=== PATIENT | female | born 1985 | race Caucasian/White ===

== ENCOUNTER → 2017-10-30 | Outpatient (CLI) | payer BC ==
[~2017-10-30] MED LIST: PRENTAB26 PO
== END | disposition home or self-care (01) ==
LOC: C.PAPS 08:08
PROVIDERS: ATTEND Physician Assistant
DX: Z01.419 Encounter for gynecological examination (general) (routine) without abnormal findings (principal)

== ENCOUNTER → 2017-10-30 | Outpatient (CLI) | payer BC ==
[2017-10-30 15:42] LABS: HEMATOCRIT 40.3 % (37-47); HEMOGLOBIN 13.9 g/dL (12.0-16.0); MEAN CELL VOLUME 91.8 fL (80-100); MEAN CORPUSCULAR HEMOGLOBIN 31.7 pg (25-34); MEAN CORPUSCULAR HGB CONC 34.5 g/dl (32-36); MEAN PLATELET VOLUME 10.1 fL (7.4-10.4); PLATELET COUNT 278 K/uL (130-400); RED CELL DISTRIBUTION WIDTH SD 43.5 fL (36.4-46.3); WHITE BLOOD COUNT 5.36 K/uL (4.8-10.8)
== END | disposition home or self-care (01) ==
LOC: C.LAB1850 14:14
PROVIDERS: ATTEND Physician Assistant
DX: N93.9 Abnormal uterine and vaginal bleeding, unspecified (principal)

== ENCOUNTER 2022-10-01 17:47 | Inpatient (IN) ==
--- NOTE | 2022-10-01 18:42 | Emergency Department Note ---
Impression & Plan Acute psychosis ED Provider Note HISTORY OF PRESENT ILLNESS: Patient is a 37-year-old female presenting as a 302. Patient's filed a 302 given concern for the patient's ability to care for herself and the statements she has been making over the last month. She reportedly had been fired from her job a month ago and has been having significant decline in her physical and mental state. She is reportedly lost around 30 pounds and is no longer eating or sleeping. She reportedly is on day 4 of being awake. 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 Patient adamantly denies all of the claims in the 302. 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 302 reports patient stopped taking her medications ROS: as above PHYSICAL EXAM: Patient is sitting comfortably on examination bed. She is spe aking in full sentences but does have some tangential thinking. Patient appears well groomed. Makes fair eye contact. Speech is pressured with normal volume and rate. Thought process is tangential. MDM: - Vitals signs showed hypertension. - History obtained via patient and family members, given patient's psychosis. Patient presents with inability to care for herself and acute psychosis. Patient is a 302 petition by her who documents significant concern for the patient's ability to care for herself and others at this time. She has had multiple outpatient stressors including getting fired from her job, over the last month. She has not been taking her psychiatric medications. Patient also reportedly had written a suicide note but denies any suicidal ideation on interview. - Chronic conditions affecting care: bipolar I disorder - Differential diagnoses include, but are not limited to: Acute psychosis; electrolyte abnormality; pneumonia; UTI - External medical records reviewed. 302 petition by was reviewed. He documents multiple examples of the patient's inability to care for herself over the last month. She seems to be having delusions of grandeur and tangential thinking. - Patient's parents present to the ER to help give some supplemental information. They also provide information that is concerning that the patient is unable to care for herself right now secondary to her acute psychiatric issue. Patient is adamant that she has no prior psychiatric diagnoses and is not prescribed any medications, despite documentation as such. Patient's flight of ideas and delusions of grandeur, as well as the information prescribed by family who knows her best, I decided to uphold the 302 petition. Laboratory work-up was obtained for medical clearance. Behavioral health web content & social media manager consulted and assisting with necessary documentation for inpatient psychiatric admission. - Laboratory workup interpreted by myself showed normal WBC; stable electrolytes; negative ethanol/salicylate levels - UA negative for infection. UDS positive for THC. - Patient medically cleared as of 21:00. Awaiting bed search for inpatient psychiatric facility at this time. - Patient admitted to [address] [place] [address] psychiatric service for further mohan luation and management. ASSESSMENT AND PLAN: Diagnosis: acute psychosis Plan: admit Past Med/Surg History Medical History Bipolar I disorder, single manic episode Cardiac murmur Constipation Depression with anxiety Fatigue History of abnormal uterine bleeding History of COVID-19 DX'D 07/30/21 [facility] FATIGUE, SOB, FEVER, NASAL CONGESTION-RECOVERED AT HOME- SYMPTOMS RESOLVED History of genital warts History of varicella Hypothyroidism NO MEDS Labile blood pressure (11/14/13) Normal delivery Pain, lower leg Seizure ??HX DYSTONIC MOVEMENTS OR TYPE OF SEIZURE-BODY MOVEMENTS BUT REMAINS LUCID- LAST EPISODE 06/2021-F/U [facility]-NO MEDS Syncope HX Surgical History No history of previous surgery LOW BP WITH EPIDURAL WITH DAUGHTER 7 YRS AGO Family History Grandfather (Maternal) Diabetes Heart disease Hypertension Skin cancer Brother Thyroid disease Denies family history of Ovarian cancer Breast cancer Colorectal cancer Social History Smoking Status: Former smoker Tobacco Type: Cigarettes and E-cigarettes / Vaping packs per day: 0.5; Cigarettes Per Day: 10 CIGS A DAY; Second Hand Exposure: No; Hx Alcohol Use: Yes Alcohol type: beer Hx Substance Use: No Preferred Language: Samoan Communication Ability: Effective Visual Impairment: No Limitations Hearing Ability: Normal Hot Car Operator Required: No Beliefs That Will Affect Care: None marital status: Current Living Situation: Spouse and Family current occupational status: employed 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 Feels Safe at Home: No Is there a partner from a previous relationship who is making you feel unsafe now?: No Childhood Exposure to Second-Hand Smoke: Yes Dental Care, Regularly: No Physical Activity Frequency: Does not Exercise Seatbelt Use: always Sunscreen Use: Yes Gender Identity: Other Assistive Devices: Glasses Allergies Allergies Allergy/AdvReac Type Severity Reaction Status Date / Time dimenhydrinate Allergy Intermediate Hives Verified 08/24/21 13:30 [From Dramamine] Home Meds Home Medications Medication Instructions Recorded Confirmed Tudca 1 cap PO QPM 09/23/20 08/24/21 activated charcoal 200 mg capsule 0 mg PO BID PRN Other 09/23/20 08/24/21 cholecalciferol (vitamin D3) 10 10 mcg PO QPM 09/23/20 08/24/21 mcg (400 unit) tablet glutamine 500 mg tablet 500 mg PO QAM 09/23/20 08/24/21 magnesium citrate 100 mg capsule 100 mg PO HS 09/23/20 08/24/21 zinc 50 mg tablet 50 mg PO HS 09/23/20 08/24/21 progesterone micronized 100 mg 100 mg PO UD 08/24/21 08/24/21 capsule hydroxyzine pamoate 25 mg capsule 25 mg PO TID PRN Itching 09/12/22 09/12/22 Previous Rx's Medication Instructions Recorded sennosides 8.6 mg-docusate sodium 1 tab-cap PO DAILY constipation 08/31/21 50 mg tablet (Colace 2-In-1) #30 tabs Results & Data (ED) Vital Signs Vital Signs - 24 hr 10/01/22 18:02 10/01/22 18:58 10/01/22 22:00 Temperature 36.9 C Temperature Source Oral Pulse Rate 71 Pulse Rate [Radial] 77 82 Pulse Rhythm [Radial] Regular Regular Pulse Strength [Radial] Normal Normal Respiratory Rate 18 18 18 Respiratory Effort / Characteristics Non-Labored Spontaneous Non-Labored Spontaneous Non-Labored Spontaneous Respiratory Depth Normal Normal Normal Respiratory Pattern Regular Regular Blood Pressure 151/91 H Blood Pressure [Right Arm] 142/82 H Blood Pressure Mean 111 Blood Pressure Mean [Right Arm] 102 Blood Pressure Position Sitting Pulse Oximetry 100 99 97 Oxygen Delivery Method Room Air Room Air Room Air Sepsis Recent Fever Within 48 Hours No Sepsis New/Unexplained Change in Mental Status N/A Sepsis Action Taken by Nursing No Action Required Laboratory Data 10/01/22 19:15 10/01/22 19:15 Lab Results 10/01/22 10/01/22 10/01/22 Range/Units 17:58 17:58 19:15 WBC 7.18 (4.8-10.8) K/ul RBC 4.59 (4.20-5.40) M/uL Hgb 14.6 (12.0-16.0) g/dl Hct 40.1 (37.0-47.0) % MCV 87.4 (80.0-100.0) fL MCH 31.8 (25.0-34.0) pg MCHC 36.4 H (32.0-36.0) g/dL RDW Std Deviation 38.8 (36.4-46.3) fL RDW Coeff of Swati 12.1 (11.5-14.5) % Plt Count 295 (130-400) K/uL MPV 9.5 (9.4-12.4) fL Immature Gran % (Auto) 0.3 % Neut % (Auto) 63.2 % Lymph % (Auto) 28.0 % [place] % (Auto) 7.4 % Eos % (Auto) 0.7 % Baso % (Auto) 0.4 % Neut # (Auto) 4.54 (1.40-6.50) K/uL Lymph # (Auto) 2.01 (1.2-3.4) K/uL [place] # (Auto) 0.53 (0.11-0.59) K/uL Eos # (Auto) 0.05 (0-0.50) K/uL Baso # (Auto) 0.03 (0-0.2) K/uL Immature Gran # (Auto) 0.02 (0.01-0.20) K/uL Sodium (136-145) mmol/L Potassium (3.5-5.1) mmol/L Chloride (98-107) mmol/L Carbon Dioxide (21-32) mmol/L Anion Gap (3-11) BUN (6-23) mg/dl Creatinine (0.6-1.2) mg/dl Est Cr Clr Drug Dosing Est GFR ( Amer) ml/min Est GFR (Non-Af Amer) ml/min BUN/Creatinine Ratio (10-20) Glucose (70-99(Fasting)) mg/dl Calcium (8.5-10.1) mg/dl Total Bilirubin (0.2-1.0) mg/dl AST (13-39) U/L ALT (7-52) U/L Alkaline Phosphatase (34-104) U/L Total Protein (6.0-8.3) gm/dl Albumin (3.4-5.0) gm/dl Globulin (2.5-4.0) gm/dl Albumin/Globulin Ratio (0.9-2) TSH (0.300-4.500) uIu/ml HCG, Qual (Negative) Urine Color Yellow Urine Appearance Cloudy A (Clear) Urine pH 7.0 (4.5-7.5) Ur Specific Ruffin 1.013 (1.000-1.030) Urine Protein Negative (Negative) Urine Glucose (UA) Negative (Negative) Urine Ketones Trace H (Negative) Urine Blood Negative (Negative) Urine Nitrite Negative (Negative) Urine Bilirubin Negative (Negative) Urine Urobilinogen Negative (Negative) Ur Leukocyte Esterase Negative (Negative) Urine WBC (Auto) 1-5 (0-5) /hpf Urine RBC (Auto) 0-4 (0-4) /hpf U Hyaline Cast (Auto) 1-5 (0-5) /lpf U Epithel Cells (Auto) >30 H (0-5) /lpf Urine Bacteria (Auto) Negative (Negative) Salicylates (3.0-30) mg/dl Urine Opiates Screen Neg (Neg) Ur Methadone, Qual Neg (Neg) Acetaminophen (10-30) ug/ml Urine Barbiturates Neg (Neg) Ur Phencyclidine (PCP) Neg (Neg) U Amphetamin/Meth Scrn Neg (Neg) MDMA (Ecstasy) Screen Neg (Neg) U Benzodiazepines Scrn Neg (Neg) Ur Cocaine Metabolite Neg (Neg) U Marijuana (THC) Screen Pos H (Neg) Ethyl Alcohol mg/dL (<10.0) mg/dl SARS-CoV-2, RNA, NAAT (NEGATIVE) 10/01/22 10/01/22 10/01/22 Range/Units 19:15 19:15 19:15 WBC (4.8-10.8) K/ul RBC (4.20-5.40) M/uL Hgb (12.0-16.0) g/dl Hct (37.0-47.0) % MCV (80.0-100.0) fL MCH (25.0-34.0) pg MCHC (32.0-36.0) g/dL RDW Std Deviation (36.4-46.3) fL RDW Coeff of Swati (11.5-14.5) % Plt Count (130-400) K/uL MPV (9.4-12.4) fL Immature Gran % (Auto) % Neut % (Auto) % Lymph % (Auto) % [place] % (Auto) % Eos % (Auto) % Baso % (Auto) % Neut # (Auto) (1.40-6.50) K/uL Lymph # (Auto) (1.2-3.4) K/uL [place] # (Auto) (0.11-0.59) K/uL Eos # (Auto) (0-0.50) K/uL Baso # (Auto) (0-0.2) K/uL Immature Gran # (Auto) (0.01-0.20) K/uL Sodium 137 (136-145) mmol/L Potassium 3.6 (3.5-5.1) mmol/L Chloride 106 (98-107) mmol/L Carbon Dioxide 26 (21-32) mmol/L Anion Gap 5 (3-11) BUN 10 (6-23) mg/dl Creatinine 0.79 (0.6-1.2) mg/dl Est Cr Clr Drug Dosing Not Reportable Est GFR ( Amer) 110.1 ml/min Est GFR (Non-Af Amer) 95.0 ml/min BUN/Creatinine Ratio 12.7 (10-20) Glucose 130 H (70-99(Fasting)) mg/dl Calcium 10.2 H (8.5-10.1) mg/dl Total Bilirubin 0.6 (0.2-1.0) mg/dl AST 17 (13-39) U/L ALT 13 (7-52) U/L Alkaline Phosphatase 45 (34-104) U/L Total Protein 7.5 (6.0-8.3) gm/dl Albumin 4.9 (3.4-5.0) gm/dl Globulin 2.6 (2.5-4.0) gm/dl Albumin/Globulin Ratio 1.9 (0.9-2) TSH 0.476 (0.300-4.500) uIu/ml HCG, Qual (Negative) Urine Color Urine Appearance (Clear) Urine pH (4.5-7.5) Ur Specific Ruffin (1.000-1.030) Urine Protein (Negative) Urine Glucose (UA) (Negative) Urine Ketones (Negative) Urine Blood (Negative) Urine Nitrite (Negative) Urine Bilirubin (Negative) Urine Urobilinogen (Negative) Ur Leukocyte Esterase (Negative) Urine WBC (Auto) (0-5) /hpf Urine RBC (Auto) (0-4) /hpf U Hyaline Cast (Auto) (0-5) /lpf U Epithel Cells (Auto) (0-5) /lpf Urine Bacteria (Auto) (Negative) Salicylates < 3.0 L (3.0-30) mg/dl Urine Opiates Screen (Neg) Ur Methadone, Qual (Neg) Acetaminophen < 3 L (10-30) ug/ml Urine Barbiturates (Neg) Ur Phencyclidine (PCP) (Neg) U Amphetamin/Meth Scrn (Neg) MDMA (Ecstasy) Screen (Neg) U Benzodiazepines Scrn (Neg) Ur Cocaine Metabolite (Neg) U Marijuana (THC) Screen (Neg) Ethyl Alcohol mg/dL (<10.0) mg/dl SARS-CoV-2, RNA, NAAT (NEGATIVE) 10/01/22 10/01/22 10/01/22 Range/Units 19:15 19:15 19:15 WBC (4.8-10.8) K/ul RBC (4.20-5.40) M/uL Hgb (12.0-16.0) g/dl Hct (37.0-47.0) % MCV (80.0-100.0) fL MCH (25.0-34.0) pg MCHC (32.0-36.0) g/dL RDW Std Deviation (36.4-46.3) fL RDW Coeff of Swati (11.5-14.5) % Plt Count (130-400) K/uL MPV (9.4-12.4) fL Immature Gran % (Auto) % Neut % (Auto) % Lymph % (Auto) % [place] % (Auto) % Eos % (Auto) % Baso % (Auto) % Neut # (Auto) (1.40-6.50) K/uL Lymph # (Auto) (1.2-3.4) K/uL [place] # (Auto) (0.11-0.59) K/uL Eos # (Auto) (0-0.50) K/uL Baso # (Auto) (0-0.2) K/uL Immature Gran # (Auto) (0.01-0.20) K/uL Sodium (136-145) mmol/L Potassium (3.5-5.1) mmol/L Chloride (98-107) mmol/L Carbon Dioxide (21-32) mmol/L Anion Gap (3-11) BUN (6-23) mg/dl Creatinine (0.6-1.2) mg/dl Est Cr Clr Drug Dosing Est GFR ( Amer) ml/min Est GFR (Non-Af Amer) ml/min BUN/Creatinine Ratio (10-20) Glucose (70-99(Fasting)) mg/dl Calcium (8.5-10.1) mg/dl Total Bilirubin (0.2-1.0) mg/dl AST (13-39) U/L ALT (7-52) U/L Alkaline Phosphatase (34-104) U/L Total Protein (6.0-8.3) gm/dl Albumin (3.4-5.0) gm/dl Globulin (2.5-4.0) gm/dl Albumin/Globulin Ratio (0.9-2) TSH (0.300-4.500) uIu/ml HCG, Qual Negative (Negative) Urine Color Urine Appearance (Clear) Urine pH (4.5-7.5) Ur Specific Ruffin (1.000-1.030) Urine Protein (Negative) Urine Glucose (UA) (Negative) Urine Ketones (Negative) Urine Blood (Negative) Urine Nitrite (Negative) Urine Bilirubin (Negative) Urine Urobilinogen (Negative) Ur Leukocyte Esterase (Negative) Urine WBC (Auto) (0-5) /hpf Urine RBC (Auto) (0-4) /hpf U Hyaline Cast (Auto) (0-5) /lpf U Epithel Cells (Auto) (0-5) /lpf Urine Bacteria (Auto) (Negative) Salicylates (3.0-30) mg/dl Urine Opiates Screen (Neg) Ur Methadone, Qual (Neg) Acetaminophen (10-30) ug/ml Urine Barbiturates (Neg) Ur Phencyclidine (PCP) (Neg) U Amphetamin/Meth Scrn (Neg) MDMA (Ecstasy) Screen (Neg) U Benzodiazepines Scrn (Neg) Ur Cocaine Metabolite (Neg) U Marijuana (THC) Screen (Neg) Ethyl Alcohol mg/dL < 10.0 (<10.0) mg/dl SARS-CoV-2, RNA, NAAT NEGATIVE (NEGATIVE) Discharge Plan Visit Data Chief Complaint: Mental Health Evaluation Stated Complaint: [facility] ED Provider: Arlyn Mcclendon Discharge Problem: Acute psychosis Patient Disposition: Admitted As Inpatient Forms Stand Alone Forms: [facility], Suicide Prevention Resources Prescriptions Prescriptions: No Action sennosides-docusate sodium [Colace 2-In-1] 8.6-50 mg tablet 1 tab-cap PO DAILY Qty: 30 3RF zinc 50 mg Tablet 50 mg PO HS glutamine 500 mg Tablet 500 mg PO QAM activated charcoal 200 mg Capsule 0 mg PO BID PRN (Reason: Other) magnesium citrate 100 mg Capsule 100 mg PO HS Tudca 1 cap PO QPM cholecalciferol (vitamin D3) 10 mcg (400 unit) Tablet 10 mcg PO QPM progesterone micronized 100 mg Capsule 100 mg PO UD hydroxyzine pamoate 25 mg capsule 25 mg PO TID PRN (Reason: Itching) Referrals Referrals: Venita Pollard DO [Primary Care Provider] -
[2022-10-01 19:23] LABS: Appearance Urine Cloudy (Clear); Bacteria Urine Automated Negative (Negative); Bilirubin Urine Negative (Negative); Blood Urine Negative (Negative); Color Urine Yellow; Epithelial Cell Urine Auto >30 /lpf (0-5); Glucose Urine UA Negative (Negative); Ketones Urine Trace (Negative); Leukocyte Esterase Urine Negative (Negative); Nitrite Urine Negative (Negative); Protein Urine Negative (Negative); RBC Urine Automated 0-4 /hpf (0-4); Specific Gravity Urine 1.013 (1.000-1.030); Urobilinogen Urine Negative (Negative)
[2022-10-01 19:29] LABS: Basophils # (auto) 0.03 K/uL (0-0.2); Basophils % (auto) 0.4 %; Eosinophils # (auto) 0.05 K/uL (0-0.50); Eosinophils % (auto) 0.7 %; Hematocrit (blood only) 40.1 % (37.0-47.0); Hemoglobin 14.6 g/dl (12.0-16.0); Immature Granulocytes # (auto) 0.02 K/uL (0.01-0.20); Immature Granulocytes % (auto) 0.3 %; Lymphocytes # (auto) 2.01 K/uL (1.2-3.4); Mean Corpuscular Hemoglobin 31.8 pg (25.0-34.0); Mean Corpuscular Hgb Conc 36.4 g/dL (32.0-36.0); Mean Corpuscular Volume 87.4 fL (80.0-100.0); Mean Platelet Volume 9.5 fL (9.4-12.4); Monocytes # (auto) 0.53 K/uL (0.11-0.59); Monocytes % (auto) 7.4 %; Neutrophils # (auto) 4.54 K/uL (1.40-6.50); Neutrophils % (auto) 63.2 %; Platelet Count 295 K/uL (130-400); RDW Coefficient of Variation 12.1 % (11.5-14.5); RDW Standard Deviation 38.8 fL (36.4-46.3); Red Blood Count 4.59 M/uL (4.20-5.40); White Blood Count 7.18 K/ul (4.8-10.8)
[2022-10-01 19:39] LABS: Pregnancy Test, Serum Negative (Negative)
[2022-10-01 19:48] LABS: Alanine Aminotransferase 13 U/L (7-52); Albumin Globulin Ratio 1.9 (0.9-2); Albumin Level 4.9 gm/dl (3.4-5.0); Alkaline Phosphatase 45 U/L (34-104); Anion Gap 5 (3-11); Aspartate Aminotransferase 17 U/L (13-39); BUN Creatinine Ratio 12.7 (10-20); Bilirubin,Total 0.6 mg/dl (0.2-1.0); Blood Urea Nitrogen 10 mg/dl (6-23); Calcium 10.2 mg/dl (8.5-10.1); Carbon Dioxide 26 mmol/L (21-32); Chloride 106 mmol/L (98-107); Est GFR (African American) 110.1 ml/min; Globulin 2.6 gm/dl (2.5-4.0); Glucose 130 mg/dl (70-99(Fasting)); Potassium 3.6 mmol/L (3.5-5.1); Sodium 137 mmol/L (136-145); Total Protein 7.5 gm/dl (6.0-8.3)
[2022-10-01 19:52] LABS: Amphetamines+Metham, Urine Neg (Neg); Barbiturates, Urine Neg (Neg); Benzodiazepine, Urine Neg (Neg); Cocaine, Urine Neg (Neg); MDMA (Ecstacy), Urine Neg (Neg); Methadone, Urine Neg (Neg); Opiate, Urine Neg (Neg); Phencyclidine, Urine Neg (Neg)
[2022-10-01 19:59] LABS: Acetaminophen < 3 ug/ml (10-30); Salicylate < 3.0 mg/dl (3.0-30)
[2022-10-01] MEDS ORDERED: hydrOXYzine HCl 25 MG TAB PO PRN ×2 (22:40)
[2022-10-01] MEDS ORDERED: ALUMINUM/MAGNESIUM SUSP 30 ML UDC PO PRN (22:40)
[2022-10-01] MEDS ORDERED: SODIUM CHLORIDE 0.65% NA SOLN 45 ML (OCEAN) PRN (22:40)
[2022-10-01] MEDS ORDERED: MAGNESIUM HYDROXIDE SUSP 30 ML UDC PO PRN (22:40)
[2022-10-01] MEDS ORDERED: ACETAMINOPHEN 325 MG TAB PO PRN (22:40)
[2022-10-01] MEDS ORDERED: BISMUTH SUBSALICYLATE LIQD 236 ML PO PRN (22:40)
[2022-10-01] MEDS ORDERED: OLANZapine ZYDIS 5 MG ORALLY DIS. TAB PO PRN (23:55)
[2022-10-02] MEDS ORDERED: NICOTINE 21 MG/24 HR TDSY TD SCH (09:00)
[2022-10-02] MEDS: LORazepam 1 MG TAB SL PRN (10:56)
--- NOTE | 2022-10-02 12:43 | History & Physical ---
Date of Service October 02, 2022 Impression / Recommendations Impression 37 year old with a history of bipolar disorder, SSRI use this fall for depression and medical marijuana use who was admitted for decreased sleep, grandiose/hyperreligious/bizarre delusions, decreased po intake with 30 lbs weight loss, going outside without appropriate clothing for the weather, hypersexuality, increased spending and distractibility admitted on 302 commitment for inability to care for herself. Diagnostically consistent with acute laura. She is deemed unstable and requires psychiatric hospitalization for diagnostic clarification, safety and stabilization, medication management and development of further coping skills. Discussed medication treatment options, she could not tolerate prolonged discussion but consented to starting olanzapine and ativan for laura (though she disagrees that she is experiencing any episode of laura, agrees to take the medications to help with anxiety and sleep). Reviewed side effects of olanzapine including but not limited to: movement (TD, NMS), cardiac (QTc prolongation), and metabolic (stroke, insulin resistance) and necessity for fasting lipid and glucose labwork and AIMS done with score of 0. Reviewed side effects of lorazpeam including but not limited to: sedation, risk of falls, addictive potential. (1) Bipolar disorder with severe laura: (2) Acute psychosis: Plan 10/02/2022: The patient was admitted to the [facility] ([facility]) on q15 min checks (behavioral with suicide precautions) for safety. The patient will participate in group, recreational, and milieu therapies and will be offered additional individual and family sessions as clinically appropriate. -Start olanzapine 10mg HS -Ativan and olanzapine prn for anxiety/agitation Inventory Assets Strengths: supportive relationships, has housing Needs: safety and stabilization, medication adjustment, additional coping skills, increased outpatient services Suicide Risk Level Suicide Risk Level: High-Moderate (q15 min suicide checks) (due to acute laura, psychosis with disorganized behaviors and recent possible statements of SI but denies current SI and feels safe in the hospital, able to safety contract and agrees to let nursing/staff know should they develop plan, intent or feel unable to remain safe. ) Risk Factors Assessment Male: No : Yes Do You Have Access To A Gun?: No ( has a gun but it is locked and she doesn't have code/access) Health Problems: No Mental Health Diagnoses: Yes Previous Attempt: No Family History of Suicide: No Previous Psychiatric Hospitalization: No Hopelessness: No Protective Factors Assessment Restorationist Beliefs: Yes : Yes Responsible for Young Children: Yes Employed: No (Has lost 2 jobs in the past 6 months) Stable Relationships: Yes Supportive Family: Yes Psychiatric History Identifying Data LORENZA SCHNEIDER is a 37-year-old woman who currently lives in [place] with her and daughter, history of depression, anxiety, bipolar disorder and was admitted on 10/01/22 22:40 on a 302 involuntary commitment for inability to care for herself and acute laura. Chief Complaint "Just because I move a lot faster than they do they put me in here". History of Present Illness Lorenza was brought to the ED by her on a 302 petition stating concerns for acute laura and her ability to maintain her safety, care for herself and concern for possible recent suicidal statements. Per the 302 petitioning statement she believes she has been communicating with famous actors, going outside in the freezing temperatures without shoes or adequate clothing on, has been forgetting to eat and lost about 30 lbs in the last month, has stated beliefs about being an alien and manipulating energy brian, excessively spending money and trying to get her to help her send money to [employer], has been wearing swimsuits due not keeping up with laundry, expressed concerns about being watched and experimented on by the government, beliefs she is a God and can move people between dimensions and has been going up to 4 days in a row without any sleep. She also written and texted her concerning statements about possible suicidal ideation and/or plan to apparently having written in a journal a " Note" stating her "intent to kill herself". She was previously seen in the ED in August for going without sleep and her noted significantly mood changes since she started using medical marijuana. In contrast to the above, Lorenza feels she does not need to be admitted psychiatrically and that her , parents and siblings concerns are not justified. 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 She says around the same time she was fired from her job she quit smoking abruptly due to the long-term health risks and wanting to "not use substances, eat clean, take care of myself" and if anything is just experiencing nicotine withdrawal. She denies any sleep changes saying she's been sleeping 6-8 hours per night. Describes discovering she identifies as pansexual and coming out to her family, and friends via a "funny post" on social media that she identifies as such last month. Describes sexual feelings for others and trying to discuss this with her and "toggling back and forth between feminine and masculine energy". She agrees she has felt more jew and has accepted that she "has a higher purpose" and is "very empathetically guided" and feels frustrated that her family has been unsupportable of this. She denies any SI stating the letter her found was from an "old journal post, and a huge invasion of my privacy". Says she has not had any contact with her daughter in about a month as "I don't want her to be confused by my pansexuality". Tells me she is not eating so far in the hospital because she is uncomfortable here. Declines offers to have family bring her in other food or for medication to help with the nausea and diarrhea she re ports is due to her being forced into the hospital. She is not currently prescribed any psychiatric medications. Past Psychiatric History Current Psychiatric Diagnosis: psychosis NOS Outpatient Services: none Previous Psych Admissions: denies Do You Have Access To A Gun?: No ( has a gun but it is locked and she doesn't have code/access) History of Previous Suicide Attempt: No (she denies any prior attempts) Past Medication Trials: sertraline from Mar-May 2022 for stress related to her job; hx hydroxyzine prn for anxiety; no evidence for hx mood stabilizers or antipsychotics Past Head Trauma/Neuro History History of Concussion/Seizure: No Seizure listed as possible on her problem list but she denies any history of this today Allergies Allergy/AdvReac Type Severity Reaction Status Date / Time dimenhydrinate Allergy Intermediate Hives Verified 08/24/21 13:30 [From Dramamine] Home Medications Medication Instructions Recorded Confirmed Type hydroxyzine pamoate 25 mg capsule 25 mg PO TID PRN Itching 09/12/22 10/02/22 History Family History Family History of: Depression and Anxiety Alcohol History Hx of Alcohol Use Over the Past 12 Months: Yes (none since late may) AUDIT Total Score: 0 Smoking Use Have You Smoked or Used Tobacco Products in the Last 30 Days: No tobacco type: cigarettes Smoking Status: Former smoker Smoking packs per day: 1 Substance History Hx of Prescription Med Misuse Over the Past 12 Months: No Hx of Over the Counter Med Misuse Over the Past 12 Months: No Hx of Inhalent Misuse Over the Past 12 Months: No Hx of Organic Substance Use Over the Past 12 Months: Yes (mj) Hx of Illegal Substances/Street Drug Use Over Past 12 Months: No Problems as a Result of Past Substance Use: None Identified uses medical marijuana during the day and before bed, likes that this calms her down, nothing she doesn't like about it Personal History Living Arrangements: Home Highest Grade Completed: College Employment Status: Unemployed Marital Status: Number Of Children: daughter Beliefs That Will Affect Care: None Current Legal Problems: No Hx Legal Problems: No Hx Traumatic Life Events: Yes Patient History Medical History Bipolar I disorder, single manic episode Cardiac murmur Constipation Depression with anxiety Fatigue History of abnormal uterine bleeding History of COVID-19 DX'D 07/30/21 [facility] FATIGUE, SOB, FEVER, NASAL CONGESTION-RECOVERED AT HOME- SYMPTOMS RESOLVED History of genital warts History of varicella Hypothyroidism NO MEDS Labile blood pressure (11/14/13) Normal delivery Pain, lower leg Seizure ??HX DYSTONIC MOVEMENTS OR TYPE OF SEIZURE-BODY MOVEMENTS BUT REMAINS LUCID- LAST EPISODE 06/2021-F/U [facility]-NO MEDS Syncope HX Surgical History No history of previous surgery LOW BP WITH EPIDURAL WITH DAUGHTER 7 YRS AGO Family History Grandfather (Maternal) Diabetes Heart disease Hypertension Skin cancer Brother Thyroid disease Denies family history of Ovarian cancer Breast cancer Colorectal cancer Social History Smoking Status: Former smoker Tobacco Type: Cigarettes and E-cigarettes / Vaping packs per day: 0.5; Cigarettes Per Day: 10 CIGS A DAY; Second Hand Exposure: No; Hx Alcohol Use: Yes Alcohol type: beer Hx Substance Use: No Preferred Language: Ukrainian Communication Ability: Effective Visual Impairment: No Limitations Hearing Ability: Normal Adjudication Specialist Required: No Beliefs That Will Affect Care: None marital status: Current Living Situation: Spouse and Family current occupational status: employed 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 Feels Safe at Home: Yes Childhood Exposure to Second-Hand Smoke: Yes Dental Care, Regularly: No Physical Activity Frequency: Does not Exercise Seatbelt Use: always Sunscreen Use: Yes Gender Identity: Other Assistive Devices: None Review of Systems Review of Systems: All systems reviewed & are unremarkable except as noted in HPI & below Physical Exam Psychiatric: Orientation: alert and oriented x 3 Apperance: appropriately dressed and appropriately groomed Eye Contact: good eye contact Motor Behavior: + psychomotor agitation (walking around a lot, drawing throughout our conversation) Speech: + abnormal rate/rhythm/volume of speech (rapid, difficult to interrupt) Affect: + labile affect (elevated then tearful then irritable) Mood: + anxious mood and + irritable mood Thought Process: + tangential thought process and + flight of ideas Thought Content: + paranoid and + delusions (grandiose, jew) Suicidal Thoughts: denies suicidal thoughts, denies suicidal plan and denies suicidal intent Homicidal Thoughts: denies homicidal thoughts Hallucinations: no auditory hallucinations (denies but reportedly has been responding to internal stimuli prior to admi) and no visual hallucinations Cognition: recent memory grossly intact, remote memory grossly intact and language grossly intact; + attention not intact Estimated Intelligence: consistent with education level Insight: + limited insight Judgment: + limited judgement Vital Signs (Past 24 Hours): Last Vital Signs Temp 36.9 C 10/02/22 00:12 Pulse 82 10/02/22 00:12 Resp 18 10/02/22 00:12 BP 142/82 H 10/02/22 00:12 Pulse Ox 97 10/01/22 22:00 O2 Del Method Room Air 10/01/22 22:00 Exam Statement: A physical exam was performed in the ED by Dr. Mcclendon for the purposes of medical clearance. I accept that physical as correct and adequate for the purposes of the inpatient physical exam. Results & Data ([facility]) Laboratory Results Laboratory Results - last 24 hr 10/01/22 10/01/22 10/01/22 17:58 17:58 17:58 WBC RBC Hgb Hct MCV MCH MCHC RDW Std Deviation RDW Coeff of Swati Plt Count MPV Immature Gran % (Auto) Neut % (Auto) Lymph % (Auto) [place] % (Auto) Eos % (Auto) Baso % (Auto) Neut # (Auto) Lymph # (Auto) [place] # (Auto) Eos # (Auto) Baso # (Auto) Immature Gran # (Auto) Sodium Potassium Chloride Carbon Dioxide Anion Gap BUN Creatinine Est Cr Clr Drug Dosing Est GFR ( Amer) Est GFR (Non-Af Amer) BUN/Creatinine Ratio Glucose Calcium Total Bilirubin AST ALT Alkaline Phosphatase Total Protein Albumin Globulin Albumin/Globulin Ratio TSH HCG, Qual Urine Color Yellow Urine Appearance Cloudy A Urine pH 7.0 Ur Specific [place] 1.013 Urine Protein Negative Urine Glucose (UA) Negative Urine Ketones Trace H Urine Blood Negative Urine Nitrite Negative Urine Bilirubin Negative Urine Urobilinogen Negative Ur Leukocyte Esterase Negative Urine WBC (Auto) 1-5 Urine RBC (Auto) 0-4 U Hyaline Cast (Auto) 1-5 U Epithel Cells (Auto) >30 H Urine Bacteria (Auto) Negative Salicylates Urine Opiates Screen Neg Ur Methadone, Qual Neg Acetaminophen Urine Barbiturates Neg Ur Phencyclidine (PCP) Neg U Amphetamin/Meth Scrn Neg MDMA (Ecstasy) Screen Neg U Benzodiazepines Scrn Neg Ur Cocaine Metabolite Neg U Marijuana (THC) Screen Pos H U Marijuana THC Carboxy Pending Drug Screen Comment Pending Ethyl Alcohol mg/dL SARS-CoV-2, RNA, NAAT 10/01/22 10/01/22 10/01/22 19:15 19:15 19:15 WBC 7.18 RBC 4.59 Hgb 14.6 Hct 40.1 MCV 87.4 MCH 31.8 MCHC 36.4 H RDW Std Deviation 38.8 RDW Coeff of Swati 12.1 Plt Count 295 MPV 9.5 Immature Gran % (Auto) 0.3 Neut % (Auto) 63.2 Lymph % (Auto) 28.0 [place] % (Auto) 7.4 Eos % (Auto) 0.7 Baso % (Auto) 0.4 Neut # (Auto) 4.54 Lymph # (Auto) 2.01 [place] # (Auto) 0.53 Eos # (Auto) 0.05 Baso # (Auto) 0.03 Immature Gran # (Auto) 0.02 Sodium 137 Potassium 3.6 Chloride 106 Carbon Dioxide 26 Anion Gap 5 BUN 10 Creatinine 0.79 Est Cr Clr Drug Dosing Not Reportable Est GFR ( Amer) 110.1 Est GFR (Non-Af Amer) 95.0 BUN/Creatinine Ratio 12.7 Glucose 130 H Calcium 10.2 H Total Bilirubin 0.6 AST 17 ALT 13 Alkaline Phosphatase 45 Total Protein 7.5 Albumin 4.9 Globulin 2.6 Albumin/Globulin Ratio 1.9 TSH 0.476 HCG, Qual Urine Color Urine Appearance Urine pH Ur Specific [place] Urine Protein Urine Glucose (UA) Urine Ketones Urine Blood Urine Nitrite Urine Bilirubin Urine Urobilinogen Ur Leukocyte Esterase Urine WBC (Auto) Urine RBC (Auto) U Hyaline Cast (Auto) U Epithel Cells (Auto) Urine Bacteria (Auto) Salicylates Urine Opiates Screen Ur Methadone, Qual Acetaminophen Urine Barbiturates Ur Phencyclidine (PCP) U Amphetamin/Meth Scrn MDMA (Ecstasy) Screen U Benzodiazepines Scrn Ur Cocaine Metabolite U Marijuana (THC) Screen U Marijuana THC Carboxy Drug Screen Comment Ethyl Alcohol mg/dL SARS-CoV-2, RNA, NAAT 10/01/22 10/01/22 10/01/22 19:15 19:15 19:15 WBC RBC Hgb Hct MCV MCH MCHC RDW Std Deviation RDW Coeff of Swati Plt Count MPV Immature Gran % (Auto) Neut % (Auto) Lymph % (Auto) [place] % (Auto) Eos % (Auto) Baso % (Auto) Neut # (Auto) Lymph # (Auto) [place] # (Auto) Eos # (Auto) Baso # (Auto) Immature Gran # (Auto) Sodium Potassium Chloride Carbon Dioxide Anion Gap BUN Creatinine Est Cr Clr Drug Dosing Est GFR ( Amer) Est GFR (Non-Af Amer) BUN/Creatinine Ratio Glucose Calcium Total Bilirubin AST ALT Alkaline Phosphatase Total Protein Albumin Globulin Albumin/Globulin Ratio TSH HCG, Qual Negative Urine Color Urine Appearance Urine pH Ur Specific [place] Urine Protein Urine Glucose (UA) Urine Ketones Urine Blood Urine Nitrite Urine Bilirubin Urine Urobilinogen Ur Leukocyte Esterase Urine WBC (Auto) Urine RBC (Auto) U Hyaline Cast (Auto) U Epithel Cells (Auto) Urine Bacteria (Auto) Salicylates < 3.0 L Urine Opiates Screen Ur Methadone, Qual Acetaminophen < 3 L Urine Barbiturates Ur Phencyclidine (PCP) U Amphetamin/Meth Scrn MDMA (Ecstasy) Screen U Benzodiazepines Scrn Ur Cocaine Metabolite U Marijuana (THC) Screen U Marijuana THC Carboxy Drug Screen Comment Ethyl Alcohol mg/dL < 10.0 SARS-CoV-2, RNA, NAAT 10/01/22 19:15 WBC RBC Hgb Hct MCV MCH MCHC RDW Std Deviation RDW Coeff of Swati Plt Count MPV Immature Gran % (Auto) Neut % (Auto) Lymph % (Auto) [place] % (Auto) Eos % (Auto) Baso % (Auto) Neut # (Auto) Lymph # (Auto) [place] # (Auto) Eos # (Auto) Baso # (Auto) Immature Gran # (Auto) Sodium Potassium Chloride Carbon Dioxide Anion Gap BUN Creatinine Est Cr Clr Drug Dosing Est GFR ( Amer) Est GFR (Non-Af Amer) BUN/Creatinine Ratio Glucose Calcium Total Bilirubin AST ALT Alkaline Phosphatase Total Protein Albumin Globulin Albumin/Globulin Ratio TSH HCG, Qual Urine Color Urine Appearance Urine pH Ur Specific [place] Urine Protein Urine Glucose (UA) Urine Ketones Urine Blood Urine Nitrite Urine Bilirubin Urine Urobilinogen Ur Leukocyte Esterase Urine WBC (Auto) Urine RBC (Auto) U Hyaline Cast (Auto) U Epithel Cells (Auto) Urine Bacteria (Auto) Salicylates Urine Opiates Screen Ur Methadone, Qual Acetaminophen Urine Barbiturates Ur Phencyclidine (PCP) U Amphetamin/Meth Scrn MDMA (Ecstasy) Screen U Benzodiazepines Scrn Ur Cocaine Metabolite U Marijuana (THC) Screen U Marijuana THC Carboxy Drug Screen Comment Ethyl Alcohol mg/dL SARS-CoV-2, RNA, NAAT NEGATIVE Current Inpatient Medications Current Inpatient Medications: Current Inpatient Medications Acetaminophen (Acetaminophen 325 Mg Tab) 650 mg PO Q4H PRN PRN Reason: Headache or Minor Fever Stop: 10/31/22 22:39 Al Hydrox/Mg Hydrox/Simethicone (Aluminum/Magnesium Susp 30 Ml Udc) 30 ml PO Q4H PRN PRN Reason: GI Upset Stop: 10/31/22 22:39 Bismuth Subsalicylate (Bismuth Subsalicylate Liqd 236 Ml) 15 ml PO PRN PRN PRN Reason: Loose Stool Stop: 10/31/22 22:39 Lorazepam (Lorazepam 1 Mg Tab) 1 mg SL TID PRN PRN Reason: Anxiety/Agitation Stop: 11/01/22 09:33 Last Admin: 10/02/22 10:56 Dose: 1 mg Magnesium Hydroxide (Magnesium Hydroxide Susp 30 Ml Udc) 30 ml PO DAILY PRN PRN Reason: Constipation Stop: 10/31/22 22:39 Nicotine Polacrilex (Nicotine Polacrilex 2 Mg Gum) 2 piece MT PRN PRN PRN Reason: tobacco cessation Stop: 11/01/22 04:28 Olanzapine (Olanzapine Zydis 5 Mg Orally Dis. Tab) 5 mg PO TID PRN PRN Reason: agitation/psychosis Stop: 11/01/22 08:59 Last Admin: 10/02/22 10:58 Dose: 5 mg Sodium Chloride (Sodium Chloride 0.65% Na Soln 45 Ml ([place])) 1 - 2 sprays NA PRN PRN PRN Reason: Nasal Dryness/Congestion Stop: 10/31/22 22:39
[2022-10-02] MEDS: NICOTINE POLACRILEX 2 MG GUM MT PRN (14:53)
[2022-10-02] MEDS: OLANZapine 10 MG TAB PO SCH (21:17)
[2022-10-03] MEDS: NICOTINE POLACRILEX 2 MG GUM MT PRN ×2 (09:16→17:49)
--- NOTE | 2022-10-03 18:16 | Psychiatric Progress Note ---
Date of Service October 03, 2022 Impression / Recommendations Impression 37 year old with a history of bipolar disorder, SSRI use this fall for depression and medical marijuana use who was admitted for decreased sleep, grandiose/hyperreligious/bizarre delusions, decreased po intake with 30 lbs weight loss, going outside without appropriate clothing for the weather, hypersexuality, increased spending and distractibility admitted on 302 commitment for inability to care for herself. Diagnostically consistent with acute laura. She is deemed unstable and requires psychiatric hospitalization for diagnostic clarification, safety and stabilization, medication management and development of further coping skills. Discussed medication treatment options, she was better able to participate in discussion today and consents to continuing olanzapine. Reviewed side effects of olanzapine including but not limited to: movement (TD, NMS), cardiac (QTc prolongation), and metabolic (stroke, insulin resistance) and necessity for fasting lipid and glucose labwork and AIMS done with score of 0. 10/03/2022: Some improvement today, presents with possible hypomania though showing improvement with olanzapine and sleeping well last night. Some likely hypotension causing lightheadedness from olanzapine but would like to continue with this. Still with paranoia related to her and unwilling to sign MEY for him or her family. (1) Bipolar disorder with severe laura: (2) Acute psychosis: Plan 10/03/2022: Continue current medications. Fasting lipid panel and glucose in the morning. 10/02/2022: The patient was admitted to the [facility] ([facility] unit) on q15 min checks (behavioral with suicide precautions) for safety. The patient will participate in group, recreational, and milieu therapies and will be offered additional individual and family sessions as clinically appropriate. -Start olanzapine 10mg HS -Ativan and olanzapine prn for anxiety/agitation Inventory Assets Strengths: supportive relationships, has housing Needs: safety and stabilization, medication adjustment, additional coping skills, increased outpatient services Suicide Risk Level Suicide Risk Level: Moderate (q15 min suicide checks) (due to acute larua, psychosis with disorganized behaviors and recent possible statements of SI but denies current SI and feels safe in the hospital, able to safety contract and agrees to let nursing/staff know should they develop plan, intent or feel unable to remain safe. ) Suicide Risk Level Comments: Risk Factors Assessment Male: No : Yes Do You Have Access To A Gun?: No ( has a gun but it is locked and she doesn't have code/access) Health Problems: No Mental Health Diagnoses: Yes Previous Attempt: No Family History of Suicide: No Previous Psychiatric Hospitalization: No Hopelessness: No Protective Factors Assessment Restoration Beliefs: Yes : Yes Responsible for Young Children: Yes Employed: No (Has lost 2 jobs in the past 6 months) Stable Relationships: Yes Supportive Family: Yes Interval History Identifying Information ANGEL SCHNEIDER is a 37-year-old woman who currently lives in [place] with her and daughter, history of depression, anxiety, bipolar disorder and was admitted on 10/01/22 22:40 on a 302 involuntary commitment for inability to care for herself and acute laura. Chief Complaint "I'm good but anxious I signed that MEY for my , I think I want to take it back". Review of Systems Sleep Information Total Hours of Sleep: 8 Sleep Comments: Meal Information Percent Meal Consumed - Breakfast: 100 Percent Meal Consumed - Lunch: 100 Percent Meal Consumed - Dinner: 60 Subjective Subjective Patient was seen & assessed and interval progress reviewed with treatment team nursing and social work. Napped yesterday with prn zyprexa then slept well overnight. Attending groups. Expressing ongoing concerns about her as he "never took my recovery plan or his seriously, he won't disengage when I'm feeli ng like Dr. Woodson and need a break". She denies that he has been abusive in any way toward her but rather feels she cannot trust him currently. She does want to talk with him on the phone but doesn't want us to share information with him. She plans to adjust her MEY. She is pleased she slept well with zyprexa and feels "much better" after getting so much sleep. Had some mild lightheadedness this morning but denies any other side effects from it. Agreeable to taking it again tonight. Reviewed side effects with olanzapine again and she is agreeable to fasting labwork. Physical Exam Psychiatric Orientation: alert and oriented x 3 Apperance: appropriately dressed and appropriately groomed Eye Contact: good eye contact Motor Behavior: no abnormal motor movements Speech: normal rate/rhythm/volume of speech Affect: euthymic affect Mood: + anxious mood Thought Process: + circumstantial thought process Thought Content: + paranoid Suicidal Thoughts: denies suicidal thoughts, denies suicidal plan and denies suicidal intent Homicidal Thoughts: denies homicidal thoughts Hallucinations: no auditory hallucinations and no visual hallucinations Cognition: recent memory grossly intact, remote memory grossly intact, attention grossly intact and language grossly intact Estimated Intelligence: consistent with education level Insight: + limited insight Judgment: + limited judgement Vital Signs (Past 24 Hours) Last Vital Signs Temp 36.9 C 10/03/22 06:38 Pulse 76 10/03/22 06:39 Resp 16 10/03/22 06:38 BP 115/81 10/03/22 06:39 Pulse Ox 97 10/01/22 22:00 O2 Del Method Room Air 10/01/22 22:00 Results & Data ([facility]) Current Inpatient Medications Current Inpatient Medications: Current Inpatient Medications Acetaminophen (Acetaminophen 325 Mg Tab) 650 mg PO Q4H PRN PRN Reason: Headache or Minor Fever Stop: 10/31/22 22:39 Al Hydrox/Mg Hydrox/Simethicone (Aluminum/Magnesium Susp 30 Ml Udc) 30 ml PO Q4H PRN PRN Reason: GI Upset Stop: 10/31/22 22:39 Bismuth Subsalicylate (Bismuth Subsalicylate Liqd 236 Ml) 15 ml PO PRN PRN PRN Reason: Loose Stool Stop: 10/31/22 22:39 Lorazepam (Lorazepam 1 Mg Tab) 1 mg SL TID PRN PRN Reason: Anxiety/Agitation Stop: 11/01/22 09:33 Last Admin: 10/02/22 10:56 Dose: 1 mg Magnesium Hydroxide (Magnesium Hydroxide Susp 30 Ml Udc) 30 ml PO DAILY PRN PRN Reason: Constipation Stop: 10/31/22 22:39 Nicotine Polacrilex (Nicotine Polacrilex 2 Mg Gum) 2 piece MT PRN PRN PRN Reason: tobacco cessation Stop: 11/01/22 04:28 Last Admin: 10/03/22 17:49 Dose: 2 piece Olanzapine (Olanzapine Zydis 5 Mg Orally Dis. Tab) 5 mg PO TID PRN PRN Reason: agitation/psychosis Stop: 11/01/22 08:59 Last Admin: 10/02/22 10:58 Dose: 5 mg Olanzapine (Olanzapine 10 Mg Tab) 10 mg PO HS ANATOLIY Stop: 11/01/22 20:59 Last Admin: 10/02/22 21:17 Dose: 10 mg Sodium Chloride (Sodium Chloride 0.65% Na Soln 45 Ml ([place])) 1 - 2 sprays NA PRN PRN PRN Reason: Nasal Dryness/Congestion Stop: 10/31/22 22:39 Post Discharge Appointments Primary Care Physician Name Of Family Doctor/PCP: Julissa Rashid Primary Care Provider Appointment Comment: [address], [place]
[2022-10-03] MEDS: OLANZapine 10 MG TAB PO SCH (21:03)
[2022-10-04 08:19] LABS: Estimated Average Glucose 103 mg/dl; Hemoglobin A1C 5.2 % (4.5-5.6)
[2022-10-04 08:22] LABS: Chol HDL Ratio 2.7 (0-5)
[2022-10-04] MEDS: NICOTINE POLACRILEX 2 MG GUM MT PRN ×3 (08:51→21:29)
--- NOTE | 2022-10-04 09:02 | Psychiatric Progress Note ---
Date of Service October 04, 2022 Impression / Recommendations Impression 37 year old with a history of bipolar disorder, SSRI use this fall for depression and medical marijuana use who was admitted for decreased sleep, grandiose/hyperreligious/bizarre delusions, decreased po intake with 30 lbs weight loss, going outside without appropriate clothing for the weather, hypersexuality, increased spending and distractibility admitted on 302 commitment for inability to care for herself. Diagnostically consistent with acute larua. She is deemed unstable and requires psychiatric hospitalization for diagnostic clarification, safety and stabilization, medication management and development of further coping skills. 10/04/2022: Steady improvement with sleep, still with very limited insight about likelihood of having bipolar disorder and episode of laura leading to this hospitalization. Externalizing to her family/. Some more somatic preoccupation today, could be olanzapine side effect versus lingering hypomania delusion/preoccupation. Agreeing to medication currently but plans to stop it in the future and declining psychiatric referrals as wants to follow up with a portfolio specialist/functional medicine instead. No current symptoms that would meet 303 commitment criteria as meeting her self-care needs, no threatening behaviors, no statements of SI/self-harm behaviors. Will decrease olanzapine since seems to be causing some orthostatic hypotension/subjective dizziness. Reviewed normal fatsing lipid panel, elevated fasting glucose to 132 but HBA1c normal at 5.2%. (1) Bipolar disorder with severe laura: (2) Acute psychosis: Plan 10/04/2022: Decrease olanzapine to 5mg HS. 10/03/2022: Continue current medications. Fasting lipid panel and glucose in the morning. 10/02/2022: The patient was admitted to the [facility] ([facility] unit) on q15 min checks (behavioral with suicide precautions) for safety. The patient will participate in group, recreational, and milieu therapies and will be offered additional individual and family sessions as clinically appropriate. -Start olanzapine 10mg HS -Ativan and olanzapine prn for anxiety/agitation Inventory Assets Strengths: supportive relationships, has housing Needs: safety and stabilization, medication adjustment, additional coping skills, increased outpatient services Suicide Risk Level Suicide Risk Level: Moderate (q15 min suicide checks) (denies SI, able to safety contract and agrees to let nursing/staff know should they develop plan, intent or feel unable to remain safe. ) Suicide Risk Level Comments: Risk Factors Assessment Male: No : Yes Do You Have Access To A Gun?: No ( has a gun but it is locked and she doesn't have code/access) Health Problems: No Mental Health Diagnoses: Yes Previous Attempt: No Family History of Suicide: No Previous Psychiatric Hospitalization: No Hopelessness: No Protective Factors Assessment Orthodoxy Beliefs: Yes : Yes Responsible for Young Children: Yes Employed: No (Has lost 2 jobs in the past 6 months) Stable Relationships: Yes Supportive Family: Yes Interval History Identifying Information ANGEL SCHNEIDER is a 37-year-old woman who currently lives in [place] with her and daughter, history of depression, anxiety, bipolar disorder and was admitted on 10/01/22 22:40 on a 302 involuntary commitment for inability to care for herself and acute laura. Chief Complaint "This was all caused by being isolated by my family and my 's severe lack of want of understanding". Review of Systems Sleep Information Total Hours of Sleep: 7.75 Meal Information Percent Meal Consumed - Breakfast: 100 Percent Meal Consumed - Lunch: 100 Percent Meal Consumed - Dinner: 60 Subjective Subjective Patient was seen & assessed and interval progress reviewed with treatment team nursing and social work. Rescinded MEY for . Slightly irritable last evening when declining group. Doing yoga this morning. Slept 7.75 hours last night. Adherent with zyprexa. Today again reports some dizziness and lightheadedness from zyprexa. Prefers to reduce the dose. Extensive insight- oriented processing done related to behaviors observed by her family/ prior to admission including beliefs about connections to celebrities, poor sleep, increased plans about business ideas, and increased congregation beliefs and my concern this was due to an episode of laura that is now starting to resolve. She disagrees, feels her symptoms were caused entirely by her family and 's inability to support her though agrees that medication could be helpful if her sleep is problematic in the future. She is planning to stop the zyprexa once her sleep remains stabilized as "I prefer a non-medication approach". Discussed her history of feeling unheard by the "typical" medical system and the good care she received at [facility] in the past for mold toxicity and that she prefers to use this approach again for her mental health. Emphasized my concerns that if untreated her bipolar disorder could develop into a severe depressive episode or another episode of laura. She states she is willing to track her sleep and take zyprexa if sleep starts to worsen and will continue it at a lower dose here as it is helping her sleep and she likes this. She is not interested in any type of [facility] for mood stabilization. Does not want to sign MEY or do a support meeting with her . Prefers to do this with a friend she may visit in [place] in a few weeks. Is going to reach out to her step-mother and she would prefer to stay at her home after discharge until her "can work on his own recovery plan on how he can respect my boundaries and not yell when he is frustrated with me". Physical Exam Psychiatric Orientation: alert and oriented x 3 Apperance: appropriately dressed and appropriately groomed Eye Contact: good eye contact Motor Behavior: no abnormal motor movements Speech: normal rate/rhythm/volume of speech Affect: euthymic affect Mood: no depressed mood and no anxious mood Thought Process: goal directed thought process Thought Content: reality based without delusions Suicidal Thoughts: denies suicidal thoughts, denies suicidal plan and denies suicidal intent Homicidal Thoughts: denies homicidal thoughts Hallucinations: no auditory hallucinations and no visual hallucinations Cognition: recent memory grossly intact, remote memory grossly intact, attention grossly intact and language grossly intact Estimated Intelligence: consistent with education level Insight: + limited insight Judgment: + limited judgement Vital Signs (Past 24 Hours) Last Vital Signs Temp 36.9 C 10/04/22 06:41 Pulse 72 10/04/22 06:41 Resp 16 10/04/22 06:41 BP 122/76 10/04/22 06:41 Pulse Ox 97 10/01/22 22:00 O2 Del Method Room Air 10/01/22 22:00 Results & Data ([facility]) Laboratory Results Laboratory Results - last 24 hr 10/04/22 10/04/22 07:11 07:11 Fasting Glucose 132 H Estimat Average Glucose 103 Hemoglobin A1c 5.2 Triglycerides 87 Cholesterol 187 LDL Cholesterol, Calc 101 VLDL Cholesterol, Calc 17 HDL Cholesterol 69 Cholesterol/HDL Ratio 2.7 Current Inpatient Medications Current Inpatient Medications: Current Inpatient Medications Acetaminophen (Acetaminophen 325 Mg Tab) 650 mg PO Q4H PRN PRN Reason: Headache or Minor Fever Stop: 10/31/22 22:39 Al Hydrox/Mg Hydrox/Simethicone (Aluminum/Magnesium Susp 30 Ml Udc) 30 ml PO Q4H PRN PRN Reason: GI Upset Stop: 10/31/22 22:39 Bismuth Subsalicylate (Bismuth Subsalicylate Liqd 236 Ml) 15 ml PO PRN PRN PRN Reason: Loose Stool Stop: 10/31/22 22:39 Lorazepam (Lorazepam 1 Mg Tab) 1 mg SL TID PRN PRN Reason: Anxiety/Agitation Stop: 11/01/22 09:33 Last Admin: 10/02/22 10:56 Dose: 1 mg Magnesium Hydroxide (Magnesium Hydroxide Susp 30 Ml Udc) 30 ml PO DAILY PRN PRN Reason: Constipation Stop: 10/31/22 22:39 Nicotine Polacrilex (Nicotine Polacrilex 2 Mg Gum) 2 piece MT PRN PRN PRN Reason: tobacco cessation Stop: 11/01/22 04:28 Last Admin: 10/04/22 08:51 Dose: 2 piece Olanzapine (Olanzapine Zydis 5 Mg Orally Dis. Tab) 5 mg PO TID PRN PRN Reason: agitation/psychosis Stop: 11/01/22 08:59 Last Admin: 10/02/22 10:58 Dose: 5 mg Olanzapine (Olanzapine 10 Mg Tab) 10 mg PO HS ANATOLIY Stop: 11/01/22 20:59 Last Admin: 10/03/22 21:03 Dose: 10 mg Sodium Chloride (Sodium Chloride 0.65% Na Soln 45 Ml ([place])) 1 - 2 sprays NA PRN PRN PRN Reason: Nasal Dryness/Congestion Stop: 10/31/22 22:39 Post Discharge Appointments Primary Care Physician Name Of Family Doctor/PCP: Julissa Rashid Primary Care Provider Appointment Comment: [address], [place] [address]
[2022-10-04 10:35] LABS: Marijuana Quant, GCMS Urine 886 ng/mL (<5)
[2022-10-04] MEDS: OLANZapine 5 MG TABLET PO SCH (20:45)
--- NOTE | 2022-10-05 08:45 | Psychiatric Progress Note ---
Date of Service October 05, 2022 Impression / Recommendations Impression 37 year old with a history of bipolar disorder, SSRI use this fall for depression and medical marijuana use who was admitted for decreased sleep, grandiose/hyperreligious/bizarre delusions, decreased po intake with 30 lbs weight loss, going outside without appropriate clothing for the weather, hypersexuality, increased spending and distractibility admitted on 302 commitment for inability to care for herself. Diagnostically consistent with acute laura. She is deemed unstable and requires psychiatric hospitalization for diagnostic clarification, safety and stabilization, medication management and development of further coping skills. 10/06/2022: Mood remains stable today, possible delusions based on concerns about mold vs reality-based sensitivity to such concerns/hypervigilance to bathroom changes due to her past experience with mold toxicity. Again discussed alternative medication options for mood stabilization given she does not want to continue olanzapine detention. Discussion included [employer], depakote, lamictal, alternative antipsychotics. Discussed that lithium is a natural salt but she continues to decline all medication options for longer-term management of BPAD. Prefers to see what a corporate security officer/functional medicine provider may be able to offer but will take olanzapine as needed if she is not sleeping well. Reviewed that there is no data I am aware of for any supplements offering strong evidence for use as monotherapy for mood stabilization for bipolar affective disorder to prevent episodes of laura. (1) Bipolar disorder with severe laura: (2) Acute psychosis: Plan 10/05/2022: Continue current medications and tx plan. 10/04/2022: Decrease olanzapine to 5mg HS. 10/03/2022: Continue current medications. Fasting lipid panel and glucose in the morning. 10/02/2022: The patient was admitted to the [facility] ([facility] mental health unit) on q15 min checks (behavioral with suicide precautions) for safety. The patient will participate in group, recreational, and milieu therapies and will be offered additional individual and family sessions as clinically appropriate. -Start olanzapine 10mg HS -Ativan and olanzapine prn for anxiety/agitation Inventory Assets Strengths: supportive relationships, has housing Needs: safety and stabilization, medication adjustment, additional coping skills, increased outpatient services Suicide Risk Level Suicide Risk Level: Moderate (q15 min suicide checks) (denies SI, able to safety contract and agrees to let nursing/staff know should they develop plan, intent or feel unable to remain safe. ) Suicide Risk Level Comments: Risk Factors Assessment Male: No : Yes Do You Have Access To A Gun?: No ( has a gun but it is locked and she doesn't have code/access) Health Problems: No Mental Health Diagnoses: Yes Previous Attempt: No Family History of Suicide: No Previous Psychiatric Hospitalization: No Hopelessness: No Protective Factors Assessment Roman [employer] Beliefs: Yes : Yes Responsible for Young Children: Yes Employed: No (Has lost 2 jobs in the past 6 months) Stable Relationships: Yes Supportive Family: Yes Interval History Identifying Information ANGEL SCHNEIDER is a 37-year-old woman who currently lives in [place] with her and daughter, history of depression, anxiety, bipolar disorder and was admitted on 10/01/22 22:40 on a 302 involuntary commitment for inability to care for herself and acute laura. Chief Complaint "I think backing down on the zyprexa was the right decision". Review of Systems Sleep Information Total Hours of Sleep: 6.5 Meal Information Percent Meal Consumed - Breakfast: 100 Percent Meal Consumed - Lunch: 100 Percent Meal Consumed - Dinner: 100 Subjective Subjective Patient was seen & assessed and interval progress reviewed with treatment team nursing and social work. Attending groups. Slept a little less with lower dose of olanzapine but still got 6.5 hours recorded (and she reports getting 8 hours) and she reports feeling well rested. No dizziness or lightheadedness today with lower dose of olanzapine. Reported some concerns about mold in her room in a light fixture, these were investigated by hospital environmental services with no evidence of mold as well as by unit staff. While meeting with me she is more receptive now to using lower dose of olanzapine as needed moving forward for sleep, prefers not to be on anything detention for mood stabilization. Had a good conversation with her dad and step-mom and talked with her . She is now agreeable to support meetings tomorrow with each of them. Says she may even consider allowing her to pick her up and being around him if the meeting goes well and he is respectful. She denies any other concerns. Pleased she was able to wash her slippers. Physical Exam Psychiatric Orientation: alert and oriented x 3 Apperance: appropriately dressed and appropriately groomed Eye Contact: good eye contact Motor Behavior: no abnormal motor movements Speech: normal rate/rhythm/volume of speech Affect: euthymic affect Mood: no depressed mood and no anxious mood Thought Process: goal directed thought process Thought Content: reality based without delusions Suicidal Thoughts: denies suicidal thoughts, denies suicidal plan and denies suicidal intent Homicidal Thoughts: denies homicidal thoughts Hallucinations: no auditory hallucinations and no visual hallucinations Cognition: recent memory grossly intact, remote memory grossly intact, attention grossly intact and language grossly intact Estimated Intelligence: consistent with education level Insight: + limited insight Judgment: + limited judgement Vital Signs (Past 24 Hours) Last Vital Signs Temp 36.8 C 10/05/22 06:38 Pulse 59 L 10/05/22 06:38 Resp 18 10/05/22 06:38 BP 121/82 10/05/22 06:42 Pulse Ox 97 10/01/22 22:00 O2 Del Method Room Air 10/01/22 22:00 Results & Data ([facility]) Laboratory Results Laboratory Results - last 24 hr 10/01/22 17:58 U Marijuana THC Carboxy 886 H Drug Screen Comment SEE NOTE Current Inpatient Medications Current Inpatient Medications: Current Inpatient Medications Acetaminophen (Acetaminophen 325 Mg Tab) 650 mg PO Q4H PRN PRN Reason: Headache or Minor Fever Stop: 10/31/22 22:39 Al Hydrox/Mg Hydrox/Simethicone (Aluminum/Magnesium Susp 30 Ml Udc) 30 ml PO Q4H PRN PRN Reason: GI Upset Stop: 10/31/22 22:39 Bismuth Subsalicylate (Bismuth Subsalicylate Liqd 236 Ml) 15 ml PO PRN PRN PRN Reason: Loose Stool Stop: 10/31/22 22:39 Lorazepam (Lorazepam 1 Mg Tab) 1 mg SL TID PRN PRN Reason: Anxiety/Agitation Stop: 11/01/22 09:33 Last Admin: 10/02/22 10:56 Dose: 1 mg Magnesium Hydroxide (Magnesium Hydroxide Susp 30 Ml Udc) 30 ml PO DAILY PRN PRN Reason: Constipation Stop: 10/31/22 22:39 Nicotine Polacrilex (Nicotine Polacrilex 2 Mg Gum) 2 piece MT PRN PRN PRN Reason: tobacco cessation Stop: 11/01/22 04:28 Last Admin: 10/04/22 21:29 Dose: 2 piece Olanzapine (Olanzapine Zydis 5 Mg Orally Dis. Tab) 5 mg PO TID PRN PRN Reason: agitation/psychosis Stop: 11/01/22 08:59 Last Admin: 10/02/22 10:58 Dose: 5 mg Olanzapine (Olanzapine 5 Mg Tablet) 5 mg PO HS ANATOLIY Stop: 11/03/22 21:59 Last Admin: 10/04/22 20:45 Dose: 5 mg Sodium Chloride (Sodium Chloride 0.65% Na Soln 45 Ml ([place]ers)) 1 - 2 sprays NA PRN PRN PRN Reason: Nasal Dryness/Congestion Stop: 10/31/22 22:39 Mental Health & Subst Abuse Tx Psychiatrist Name of Psychiatrist: Al Graham Psychiatrist's Date Of Appointment With Psychiatric Provider: 10/11/2022 Psychiatric Appointment Comment: [id number], [place] [address] Therapist Name of Therapist: Sheldon Richard Therapist's Date of Therapist Appointment: 10/31/2022 Time of Therapist Appointment: 10:30am Therapy Appointment Comment: [address], [address], [place] [address] Post Discharge Appointments Primary Care Physician Name Of Family Doctor/PCP: [facility] Time of Appointment with PCP: follow up as needed Provider Appointment Comment: [address], [place] Specialist Name of Specialist: Solomon Marc - Venita De León- Clinical Gm Mobile Phone Number for Specialist: [address], [address], [place] [address] Date of Appointment with Specialist: 10/11/22 Time of Appointment with Specialist: 14:45 Contact Information Discharge Discharge Address: [address], [place] [address]
[2022-10-05] MEDS: NICOTINE POLACRILEX 2 MG GUM MT PRN ×2 (12:13→17:53)
[2022-10-05] MEDS: LORazepam 1 MG TAB SL PRN (19:40)
[2022-10-05] MEDS: OLANZapine 5 MG TABLET PO SCH (21:11)
[2022-10-06] MEDS: NICOTINE POLACRILEX 2 MG GUM MT PRN (08:02)
--- NOTE | 2022-10-06 11:08 | Discharge Summary ---
Date of Service October 06, 2022 History of Present Illness Lorenza was brought to the ED by her on a 302 petition stating concerns for acute laura and her ability to maintain her safety, care for herself and concern for possible recent suicidal statements. Per the 302 petitioning statement she believes she has been communicating with famous actors, going outside in the freezing temperatures without shoes or adequate clothing on, has been forgetting to eat and lost about 30 lbs in the last month, has stated beliefs about being an alien and manipulating energy brian, excessively spending money and trying to get her to help her send money to celebrities, has been wearing swimsuits due not keeping up with laundry, expressed concerns about being watched and experimented on by the government, beliefs she is a God and can move people between dimensions and has been going up to 4 days in a row without any sleep. She also written and texted her concerning statements about possible suicidal ideation and/or plan to apparently having written in a journal a " Note" stating her "intent to kill herself". She was previously seen in the ED in August for going without sleep and her noted significantly mood changes since she started using medical marijuana. In contrast to the above, Lorenza feels she does not need to be admitted psychiatrically and that her , parents and siblings concerns are not justified. 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 She says around the same time she was fired from her job she quit smoking abruptly due to the long-term health risks and wanting to "not use substances, eat clean, take care of myself" and if anything is just experiencing nicotine withdrawal. She denies any sleep changes saying she's been sleeping 6-8 hours per night. Describes discovering she identifies as pansexual and coming out to her family, and friends via a "funny post" on social media that she identifies as such last month. Describes sexual feelings for others and trying to discuss this with her and "toggling back and forth between feminine and masculine energy". She agrees she has felt more bahai and has accepted that she "has a higher purpose" and is "very empathetically guided" and feels frustrated that her family has been unsupportable of this. She denies any SI stating the letter her found was from an "old journal post, and a huge invasion of my privacy". Says she has not had any contact with her daughter in about a month as "I don't want her to be confused by my pansexuality". Tells me she is not eating so far in the hospital because she is uncomfortable here. Declines offers to have family bring her in other food or for medication to help with the nausea and diarrhea she reports is due to her being forced into the hospital. She is not currently prescribed any psychiatric medications. Physical Exam Vital Signs (Past 24 Hours) Last Vital Signs Temp 36.6 C 10/06/22 06:46 Pulse 88 10/06/22 06:46 Resp 18 10/06/22 06:46 BP 123/72 10/06/22 06:46 Pulse Ox 97 10/01/22 22:00 O2 Del Method Room Air 10/01/22 22:00 See admission H&P and DOD summary. Principal Diagnosis Bipolar Affective Disorder, manic episode Psychiatric Data See daily stay summary. In short, patient was engaged with the social/therapeutic milieu of the unit, safety was maintained and the patient was cooperative with care. She slept consistently well after initiation of olanzapine with resolution of symptoms of laura/hypomania. Medication changes included initiation of olanzapine 5mg HS (initially 10mg but she experienced side effects of hypotension/dizziness) and she tolerated the lower dose well. She declined starting any other mood stabilizer medications. Baseline labs of fasting glucose, HbA1c, fasting lipid profile, and weight were preformed and all normal except slightly elevated fasting glucose. Recommend repeat weight in one month. Recommend repeat fasting glucose, HbA1c and fasting lipid profile every 12 weeks and then annually if she remains on olanzapine. If symptoms arise recommend checking BP, EKG, prolactin level as clinically indicated or relevant. A family session was held and safety plan was completed prior to discharge. She did not meet criteria for 303 commitment and was discharged on the day of her 302 expiration. She actively and insightfully participated in safety planning and in discussions about ways to seek support and recognizing warning signs and utilizing coping skills. Reviewed mobile apps that could be used for additional ways to have their safety plan and contacts easily available should SI re-emerge in the future. Reviewed importance of seeking emergency care should symptoms of laura, or SI occur or should they feel unsafe in the future which they agree to do. On the day of discharge she stated her mood was "I feel really tranquil" and "ready to go" remained future-oriented including seeing her , being back at home, showering and engaging in aftercare appointments with her tile erector and therapy. Day of Discharge Assessment Today the patient voices readiness for discharge. They note improvement in mood and anxiety. They deny thoughts of harm to self or others. Thoughts are organized and they are clinically improved from admission. There is no evidence of psychosis. They improved in the hospital with support and medication adjustments. They agree to take medications as prescribed and keep follow-up appointments. At the time of the discharge they are deemed to be stable and appropriate for outpatient level of care. They are not deemed to be at imminent risk of harm to self or others. They are aware of emergency and crisis services. Knows to call 911 or go to nearest emergency care center if in a crisis which cannot be handled as an outpatient. Transition of Care Transition Of Care Record: was reviewed with the patient Advance Directives Advance Directives Information Provided: Yes Advance Directives: No Mental Health Advance Directive: No Advance Directives on File: No Living Will: No Power of Drum Saw Operator: No Advance Directives Reason:: Declines as Mental Health Visit. Suicide Risk Level Suicide Risk Level Comments: Acute risk is low given improvement in mood and denial of SI, lack of access to lethal means, plan to avoid substance use, improvement in sleep, hopefulness and improvement in psychosis. Chronic risk is low to moderate given few non- modifiable risk factors: periods of impulsivity, mood disorder but also with protective factors including good social support, sense of responsibility to family and social supports, outpatient care in place, positive coping skills, positive problem solving, capacity to establish therapeutic alliance. Counseled on ways to reduce acute and chronic risk including engaging with outpatient providers, using safety plan if needed, utilizing supports, taking medication, and using coping skills. Modifiable risk factors of laura and insomnia were addressed during hospitalization through safety and stabilization, development of new coping skills, family meeting, safety planning, and medication adjustments. Risk Factors Assessment Male: No : Yes Do You Have Access To A Gun?: No ( has a gun but it is locked and she doesn't have code/access) Health Problems: No Mental Health Diagnoses: Yes Previous Attempt: No Family History of Suicide: No Previous Psychiatric Hospitalization: No Hopelessness: No Protective Factors Assessment Roman Catholic Beliefs: Yes : Yes Responsible for Young Children: Yes Employed: No Stable Relationships: Yes Supportive Family: Yes Discharge Data Lab Results 10/01/22 10/01/22 10/01/22 17:58 17:58 17:58 WBC RBC Hgb Hct MCV MCH MCHC RDW Std Deviation RDW Coeff of Swati Plt Count MPV Immature Gran % (Auto) Neut % (Auto) Lymph % (Auto) [place] % (Auto) Eos % (Auto) Baso % (Auto) Neut # (Auto) Lymph # (Auto) [place] # (Auto) Eos # (Auto) Baso # (Auto) Immature Gran # (Auto) Sodium Potassium Chloride Carbon Dioxide Anion Gap BUN Creatinine Est Cr Clr Drug Dosing Est GFR ( Amer) Est GFR (Non-Af Amer) BUN/Creatinine Ratio Glucose Fasting Glucose Estimat Average Glucose Hemoglobin A1c Calcium Total Bilirubin AST ALT Alkaline Phosphatase Total Protein Albumin Globulin Albumin/Globulin Ratio Triglycerides Cholesterol LDL Cholesterol, Calc VLDL Cholesterol, Calc HDL Cholesterol Cholesterol/HDL Ratio TSH HCG, Qual Urine Color Yellow Urine Appearance Cloudy A Urine pH 7.0 Ur Specific [place] 1.013 Urine Protein Negative Urine Glucose (UA) Negative Urine Ketones Trace H Urine Blood Negative Urine Nitrite Negative Urine Bilirubin Negative Urine Urobilinogen Negative Ur Leukocyte Esterase Negative Urine WBC (Auto) 1-5 Urine RBC (Auto) 0-4 U Hyaline Cast (Auto) 1-5 U Epithel Cells (Auto) >30 H Urine Bacteria (Auto) Negative Salicylates Urine Opiates Screen Neg Ur Methadone, Qual Neg Acetaminophen Urine Barbiturates Neg Ur Phencyclidine (PCP) Neg U Amphetamin/Meth Scrn Neg MDMA (Ecstasy) Screen Neg U Benzodiazepines Scrn Neg Ur Cocaine Metabolite Neg U Marijuana (THC) Screen Pos H U Marijuana THC Carboxy 886 H Drug Screen Comment SEE NOTE Ethyl Alcohol mg/dL SARS-CoV-2, RNA, NAAT 10/01/22 10/01/22 10/01/22 19:15 19:15 19:15 WBC 7.18 RBC 4.59 Hgb 14.6 Hct 40.1 MCV 87.4 MCH 31.8 MCHC 36.4 H RDW Std Deviation 38.8 RDW Coeff of Swati 12.1 Plt Count 295 MPV 9.5 Immature Gran % (Auto) 0.3 Neut % (Auto) 63.2 Lymph % (Auto) 28.0 [place] % (Auto) 7.4 Eos % (Auto) 0.7 Baso % (Auto) 0.4 Neut # (Auto) 4.54 Lymph # (Auto) 2.01 [place] # (Auto) 0.53 Eos # (Auto) 0.05 Baso # (Auto) 0.03 Immature Gran # (Auto) 0.02 Sodium 137 Potassium 3.6 Chloride 106 Carbon Dioxide 26 Anion Gap 5 BUN 10 Creatinine 0.79 Est Cr Clr Drug Dosing Not Reportable Est GFR ( Amer) 110.1 Est GFR (Non-Af Amer) 95.0 BUN/Creatinine Ratio 12.7 Glucose 130 H Fasting Glucose Estimat Average Glucose Hemoglobin A1c Calcium 10.2 H Total Bilirubin 0.6 AST 17 ALT 13 Alkaline Phosphatase 45 Total Protein 7.5 Albumin 4.9 Globulin 2.6 Albumin/Globulin Ratio 1.9 Triglycerides Cholesterol LDL Cholesterol, Calc VLDL Cholesterol, Calc HDL Cholesterol Cholesterol/HDL Ratio TSH 0.476 HCG, Qual Urine Color Urine Appearance Urine pH Ur Specific [place] Urine Protein Urine Glucose (UA) Urine Ketones Urine Blood Urine Nitrite Urine Bilirubin Urine Urobilinogen Ur Leukocyte Esterase Urine WBC (Auto) Urine RBC (Auto) U Hyaline Cast (Auto) U Epithel Cells (Auto) Urine Bacteria (Auto) Salicylates Urine Opiates Screen Ur Methadone, Qual Acetaminophen Urine Barbiturates Ur Phencyclidine (PCP) U Amphetamin/Meth Scrn MDMA (Ecstasy) Screen U Benzodiazepines Scrn Ur Cocaine Metabolite U Marijuana (THC) Screen U Marijuana THC Carboxy Drug Screen Comment Ethyl Alcohol mg/dL SARS-CoV-2, RNA, NAAT 10/01/22 10/01/22 10/01/22 19:15 19:15 19:15 WBC RBC Hgb Hct MCV MCH MCHC RDW Std Deviation RDW Coeff of Swati Plt Count MPV Immature Gran % (Auto) Neut % (Auto) Lymph % (Auto) [place] % (Auto) Eos % (Auto) Baso % (Auto) Neut # (Auto) Lymph # (Auto) [place] # (Auto) Eos # (Auto) Baso # (Auto) Immature Gran # (Auto) Sodium Potassium Chloride Carbon Dioxide Anion Gap BUN Creatinine Est Cr Clr Drug Dosing Est GFR ( Amer) Est GFR (Non-Af Amer) BUN/Creatinine Ratio Glucose Fasting Glucose Estimat Average Glucose Hemoglobin A1c Calcium Total Bilirubin AST ALT Alkaline Phosphatase Total Protein Albumin Globulin Albumin/Globulin Ratio Triglycerides Cholesterol LDL Cholesterol, Calc VLDL Cholesterol, Calc HDL Cholesterol Cholesterol/HDL Ratio TSH HCG, Qual Negative Urine Color Urine Appearance Urine pH Ur Specific [place] Urine Protein Urine Glucose (UA) Urine Ketones Urine Blood Urine Nitrite Urine Bilirubin Urine Urobilinogen Ur Leukocyte Esterase Urine WBC (Auto) Urine RBC (Auto) U Hyaline Cast (Auto) U Epithel Cells (Auto) Urine Bacteria (Auto) Salicylates < 3.0 L Urine Opiates Screen Ur Methadone, Qual Acetaminophen < 3 L Urine Barbiturates Ur Phencyclidine (PCP) U Amphetamin/Meth Scrn MDMA (Ecstasy) Screen U Benzodiazepines Scrn Ur Cocaine Metabolite U Marijuana (THC) Screen U Marijuana THC Carboxy Drug Screen Comment Ethyl Alcohol mg/dL < 10.0 SARS-CoV-2, RNA, NAAT 10/01/22 10/04/22 10/04/22 19:15 07:11 07:11 WBC RBC Hgb Hct MCV MCH MCHC RDW Std Deviation RDW Coeff of Swati Plt Count MPV Immature Gran % (Auto) Neut % (Auto) Lymph % (Auto) [place] % (Auto) Eos % (Auto) Baso % (Auto) Neut # (Auto) Lymph # (Auto) [place] # (Auto) Eos # (Auto) Baso # (Auto) Immature Gran # (Auto) Sodium Potassium Chloride Carbon Dioxide Anion Gap BUN Creatinine Est Cr Clr Drug Dosing Est GFR ( Amer) Est GFR (Non-Af Amer) BUN/Creatinine Ratio Glucose Fasting Glucose 132 H Estimat Average Glucose 103 Hemoglobin A1c 5.2 Calcium Total Bilirubin AST ALT Alkaline Phosphatase Total Protein Albumin Globulin Albumin/Globulin Ratio Triglycerides 87 Cholesterol 187 LDL Cholesterol, Calc 101 VLDL Cholesterol, Calc 17 HDL Cholesterol 69 Cholesterol/HDL Ratio 2.7 TSH HCG, Qual Urine Color Urine Appearance Urine pH Ur Specific [place] Urine Protein Urine Glucose (UA) Urine Ketones Urine Blood Urine Nitrite Urine Bilirubin Urine Urobilinogen Ur Leukocyte Esterase Urine WBC (Auto) Urine RBC (Auto) U Hyaline Cast (Auto) U Epithel Cells (Auto) Urine Bacteria (Auto) Salicylates Urine Opiates Screen Ur Methadone, Qual Acetaminophen Urine Barbiturates Ur Phencyclidine (PCP) U Amphetamin/Meth Scrn MDMA (Ecstasy) Screen U Benzodiazepines Scrn Ur Cocaine Metabolite U Marijuana (THC) Screen U Marijuana THC Carboxy Drug Screen Comment Ethyl Alcohol mg/dL SARS-CoV-2, RNA, NAAT NEGATIVE Hospital Course (1) Bipolar disorder with severe laura: (2) Acute psychosis: Plan 10/05/2022: Continue current medications and tx plan. 10/04/2022: Decrease olanzapine to 5mg HS. 10/03/2022: Continue current medications. Fasting lipid panel and glucose in the morning. 10/02/2022: The patient was admitted to the [facility] ([facility]) on q15 min checks (behavioral with suicide precautions) for safety. The patient will participate in group, recreational, and milieu therapies and will be offered additional individual and family sessions as clinically appropriate. -Start olanzapine 10mg HS -Ativan and olanzapine prn for anxiety/agitation Mental Health & Subst Abuse Tx Psychiatrist Name of Psychiatrist: . Psychiatrist's Phone Number: . Date Of Appointment With Psychiatric Provider: . Psychiatric Appointment Comment: . Therapist Name of Therapist: Sheldon Richard Therapist's Date of Therapist Appointment: 10/31/2022 Time of Therapist Appointment: 10:30am Therapy Appointment Comment: [address] , [address], [place] [address] Therapist Release of Information: Obtained, Reviewed and Signed Post Discharge Appointments Primary Care Physician Name Of Family Doctor/PCP: Julissa Ruiz [facility] Primary Care Time of Appointment with PCP: follow up as needed Provider Appointment Comment: [address], [place] Specialist Name of Specialist: Solomon De León- Clinical Pickle Sorter Phone Number for Specialist: Date of Appointment with Specialist: 10/11/22 Time of Appointment with Specialist: 2:45pm Specialty Appointment Comment: [address], [address], [place] [address] Contact Information Discharge Discharge Address: [address], [place] [address] Discharge Plan Discharge Items Patient Disposition: Home - Self-Care Reason For Visit: MHID Discharge Diagnosis: Bipolar Affective Disorder, manic episode Activity: Resume your previous activity Non-emergency contact: Primary Care Provider and Therapist Call non-emergency contact if: you have any medication questions and your symptoms worsen Follow-up/Referrals: Venita Pollard, [Primary Care Provider] - Diet: Regular Addtl Attending Provider Instructions: Optional mobile apps we discussed: -Suicide safety plan -Virtual Hope Box SPECIAL CARE INSTRUCTIONS: 1. Follow through with your scheduled aftercare appointments. If unable to keep an appointment, please call to reschedule. 2. Take your medication only as prescribed. Medication should not be changed or stopped without the approval of your doctor. In the event of worsening symptoms or concerns about side effects, contact your doctor immediately. 3. Utilize new healthy coping skills, anger management skills, and stress management skills learned during your hospitalization. Journal feelings and process them with a support person. Identify stressors or situations that may result in relapse, deterioration or inappropriate behaviors and develop a plan to deal with those issues. 4. If your coping skills are ineffective and you are in crisis, contact your outpatient providers for direction. If unable to reach your providers, please call the [facility] CRISIS LINE AT , go to the [facility] walk-in center at [address], [address], [place], or go to the closest Emergency Room. 5. Avoid alcohol and un-prescribed drugs. 6. You have been provided with the Mental Health Advance Directives Pamphlet for your review. 7. Your condition is stable for discharge to outpatient level of care, but recovery is an ongoing process. Ifthoughts to harm yourself or others return, follow the safety plan developed during your stay. Planning for a safe return home includes securing weapons. Our treatment team recommends weaponsbe removed from the home until your outpatient provider reassesses your progress. In rare cases where the items themselvescannot be removed, guns and ammunitionshould be secured separatelyand keys stored by a reliable personoutside of the home. If you were admitted on an involuntary commitment, the police or other legal authorities may be involved in this process. AFTERCARE APPOINTMENTS: * Please call your insurance company prior to your scheduled appointment to confirm your aftercare providers are covered. Take your insurance information to your appointments. WHO TO CALL AND WHEN: Medical Emergencies: For questions or emergencies related to your hospital stay, please contact the Inpatient Behavioral Health Unit at [phone]. A animal science instructor is on-call 19/02 for the Behavioral Health Unit for emergencies At any time you feel your situation is an emergency, you may also call 911 immediately. Pending Studies at Discharge: No Stand-Alone Forms: My [facility] Medications and DC Order Prescriptions: New olanzapine 5 mg Tablet 5 mg PO HS 30 Days Qty: 30 0RF Continued hydroxyzine pamoate 25 mg capsule 25 mg PO TID PRN (Reason: Itching) Discharge Orders: Discharge Order (Routine); Ordered 10/06/22 Ordered By: Chasity Bobo Admission Data Admit Date/Time: 10/01/22 22:40 Attending Provider: Chasity Bobo Admit Provider: Chasity Bobo Primary Care Provider: Venita Pollard Other Interventions: Discharge Summary Assessment (RN) Last Done: 10/06/22 11:08 PSY Interdisciplinary Discharge Planning Last Done: 10/06/22 10:17 Coding Level of Care Code 02705 D/C day mgmt > 30 min Diagnoses Bipolar disorder with severe laura F31.13 Acute psychosis F23 Time Spent (min) 40
== END 2022-10-06 11:38 | disposition home or self-care (01) | DRG 885 ==
LOC: ED 17:47 → 3S 22:40